=== PATIENT | female | born 1985 | race American Indian/Alaskan Native ===

== ENCOUNTER 2019-11-14 19:02 | Inpatient (IN) | payer MEDICAID ==
--- NOTE | 2019-11-14 22:59 | XRay Report ---
CHEST PA AND LATERAL VIEWS INDICATION: MAIN: COUGH AND CONGESTION; Fever, coughing, chest hurts when coughing, bodyaches, X 1 week. pt stat ed she went to [place] but they did nothing. COMPARISON: None FINDINGS: Support devices: None Heart: Normal Lungs/Pleura: Patchy parenchymal disease in the left base and, prominently, right mid and lower lung. No significant pleural fluid. IMPRESSION: 1. Findings suggest right-sided and possibly bilateral pneumonia. Signer Name: Kervin Guan MD Signed: 11/14/2019 10:55 PM Workstation Name: [id number]
[2019-11-14] MEDS ORDERED: SODIUM CHLORIDE 0.9% 1000 ML IV SOLN IV ONE (23:11)
[2019-11-14] MEDS ORDERED: SODIUM CHLORIDE 0.9% 500 ML 500 ML ONE (23:18)
[2019-11-14] MEDS ORDERED: PIPERACIL/TAZOBACTA 4.5/NS 100 4.5 GM/100 ML VIAL IV ONE (23:40)
[2019-11-14] MEDS ORDERED: VANCOMYCIN 2,000 MG in SODIUM CHLORIDE 0.9% 500 ML 500 ML IV ONE (23:45)
[2019-11-14] MEDS ORDERED: VANCOMYCIN PHARMACY TO DOSE IV SCH (23:45)
[2019-11-14 23:53] LABS: Basophils % (Auto) 0.3 % (0.0-1.8); Hematocrit 39.7 % (30.3-42.9); Hemoglobin 13.1 gm/dl (10.1-14.3); Lymphocytes # (Auto) 1.2 K/mm3 (1.2-5.4); Mean Corpuscular HGB Conc 33 % (30-34); Mean Corpuscular Volume 78 fl (79-97); Monocytes # (Auto) 0.6 K/mm3 (0.0-0.8); Monocytes % (Auto) 13.5 % (0.0-7.3); Platelet Count 206 K/mm3 (140-440); Red Blood Count 5.11 M/mm3 (3.65-5.03); Red Cell Distribution Width 16.5 % (13.2-15.2)
[2019-11-15 00:16] LABS: Alanine Aminotransferase 39 units/L (7-56); Albumin 3.8 g/dL (3.9-5); BUN/Creatinine Ratio 10; Blood Urea Nitrogen 10 mg/dL (7-17); Hemolysis Index 0
--- NOTE | 2019-11-15 00:35 | Emergency Department Report ---
- General Chief Complaint: Upper Respiratory Infection Stated Complaint: FLU SYM Time Seen by Provider: 11/14/19 22:53 Source: patient Mode of arrival: Ambulatory Limitations: No Limitations - History of Present Illness Initial Comments: Patient is a 34-year-old female presents emergency room with complaints of nausea, vomiting, diarrhea that began a week ago. She states that she has several episodes of each daily. She states that she then began to have productive cough, shortness of breath, chest tightness, chills. She denies any fever, sore throat, ear pain, abdominal pain, recent travel. She states that her only known sick contact was her approximately 2 weeks ago and he took [id number] medications and it self resolved. Patient states that she was seen at [place] 5 days ago and had a chest x-ray and flu swabs performed at that time which she states were all normal. She states that she was sent home with Zofran and Tylenol. She states that she has become acutely worse over the last couple of days. She denies any past medical history. She denies any allergies to medications. She states that her last menstrual cycle was 10/18/2019. - Related Data Allergies Allergy/AdvReac Type Severity Reaction Status Date / Time No Known Allergies Allergy Verified 11/14/19 23:36 ED Review of Systems ROS: Stated complaint: FLU SYM Other details as noted in HPI Comment: All other systems reviewed and negative ED Past Medical Hx - Past Medical History Previous Medical History?: Yes Additional medical history: OBESITY - Surgical History Past Surgical History?: No - Social History Smoking Status: Never Smoker Substance Use Type: None ED Physical Exam - General Limitations: No Limitations General appearance: alert, in no apparent distress - Head Head exam: Present: atraumatic, normocephalic - Eye Eye exam: Present: normal appearance - ENT ENT exam: Present: normal orophraynx, mucous membranes moist - Respiratory Respiratory exam: Present: decreased breath sounds (bilaterally). Absent: respiratory distress, wheezes, rales, rhonchi, stridor, chest wall tenderness, accessory muscle use, prolonged expiratory - Cardiovascular Cardiovascular Exam: Present: normal rhythm, tachycardia, normal heart sounds. Absent: systolic murmur, diastolic murmur, rubs, gallop - Neurological Exam Neurological exam: Present: alert, oriented X3 - Psychiatric Psychiatric exam: Present: normal affect, normal mood - Skin Skin exam: Present: warm, dry, intact ED Course Vital Signs 11/14/19 11/14/19 11/15/19 19:26 19:34 00:00 Temperature 98.5 F 98.4 F Pulse Rate 120 H 100 H Respiratory 20 18 18 Rate Blood Pressure 111/85 124/79 O2 Sat by Pulse 95 97 Oximetry 11/15/19 11/15/19 11/15/19 00:12 00:15 00:55 Temperature 99.1 F Pulse Rate 89 Respiratory 15 Rate Blood Pressure 139/75 O2 Sat by Pulse 100 100 Oximetry - Consultations Consultation #1: 11/15/19 00:[address] Paige, hospitalist for admission, will accept and resume care of patient, patient admitted to the hospital, I advised Dr. Paige that I filled out the CDC form for COVID 19 ED Medical Decision Making - Lab Data Result diagrams: 11/14/19 23:21 11/14/19 23:21 Lab Results 11/14/19 11/14/19 11/14/19 Range/Units 23:21 23:21 23:21 WBC 4.3 L (4.5-11.0) K/mm3 RBC 5.11 H (3.65-5.03) M/mm3 Hgb 13.1 (10.1-14.3) gm/dl Hct 39.7 (30.3-42.9) % MCV 78 L (79-97) fl MCH 26 L (28-32) pg MCHC 33 (30-34) % RDW 16.5 H (13.2-15.2) % Plt Count 206 (140-440) K/mm3 Lymph % (Auto) 27.0 (13.4-35.0) % [place] % (Auto) 13.5 H (0.0-7.3) % Eos % (Auto) 0.0 (0.0-4.3) % Baso % (Auto) 0.3 (0.0-1.8) % Lymph # 1.2 (1.2-5.4) K/mm3 [place] # 0.6 (0.0-0.8) K/mm3 Eos # 0.0 (0.0-0.4) K/mm3 Baso # 0.0 (0.0-0.1) K/mm3 Seg Neutrophils % 59.2 (40.0-70.0) % Seg Neutrophils # 2.6 (1.8-7.7) K/mm3 Sodium 137 (137-145) mmol/L Potassium 3.5 L (3.6-5.0) mmol/L Chloride 98.8 (98-107) mmol/L Carbon Dioxide 21 L (22-30) mmol/L Anion Gap 21 mmol/L BUN 10 (7-17) mg/dL Creatinine 1.0 (0.7-1.2) mg/dL Estimated GFR > 60 ml/min BUN/Creatinine Ratio 10 % Glucose 103 H (65-100) mg/dL Lactic Acid 1.20 (0.7-2.0) mmol/L Calcium 9.0 (8.4-10.2) mg/dL Total Bilirubin 0.40 (0.1-1.2) mg/dL AST 41 H (5-40) units/L ALT 39 (7-56) units/L Alkaline Phosphatase 69 (35-129) units/L Total Protein 7.6 (6.3-8.2) g/dL Albumin 3.8 L (3.9-5) g/dL Albumin/Globulin Ratio 1.0 % HCG, Qual (Negative) Influenza A (Rapid) (Negative) Influenza B (Rapid) (Negative) 11/15/19 11/15/19 Range/Units 00:43 02:12 WBC (4.5-11.0) K/mm3 RBC (3.65-5.03) M/mm3 Hgb (10.1-14.3) gm/dl Hct (30.3-42.9) % MCV (79-97) fl MCH (28-32) pg MCHC (30-34) % RDW (13.2-15.2) % Plt Count (140-440) K/mm3 Lymph % (Auto) (13.4-35.0) % [place] % (Auto) (0.0-7.3) % Eos % (Auto) (0.0-4.3) % Baso % (Auto) (0.0-1.8) % Lymph # (1.2-5.4) K/mm3 [place] # (0.0-0.8) K/mm3 Eos # (0.0-0.4) K/mm3 Baso # (0.0-0.1) K/mm3 Seg Neutrophils % (40.0-70.0) % Seg Neutrophils # (1.8-7.7) K/mm3 Sodium (137-145) mmol/L Potassium (3.6-5.0) mmol/L Chloride (98-107) mmol/L Carbon Dioxide (22-30) mmol/L Anion Gap mmol/L BUN (7-17) mg/dL Creatinine (0.7-1.2) mg/dL Estimated GFR ml/min BUN/Creatinine Ratio % Glucose (65-100) mg/dL Lactic Acid (0.7-2.0) mmol/L Calcium (8.4-10.2) mg/dL Total Bilirubin (0.1-1.2) mg/dL AST (5-40) units/L ALT (7-56) units/L Alkaline Phosphatase (35-129) units/L Total Protein (6.3-8.2) g/dL Albumin (3.9-5) g/dL Albumin/Globulin Ratio % HCG, Qual Negative (Negative) Influenza A (Rapid) Negative (Negative) Influenza B (Rapid) Negative (Negative) Vital Signs 11/14/19 11/14/19 11/15/19 19:26 19:34 00:00 Temperature 98.5 F 98.4 F Pulse Rate 120 H 100 H Respiratory 20 18 18 Rate Blood Pressure 111/85 124/79 O2 Sat by Pulse 95 97 Oximetry 11/15/19 11/15/19 11/15/19 00:12 00:15 00:55 Temperature 99.1 F Pulse Rate 89 Respiratory 15 Rate Blood Pressure 139/75 O2 Sat by Pulse 100 100 Oximetry - Radiology Data CHEST PA AND LATERAL VIEWS INDICATION: MAIN: COUGH AND CONGESTION; Fever, coughing, chest hurts when coughing, bodyaches, X 1 week. pt stated she went to [place] but they did nothing. COMPARISON: None FINDINGS: Support devices: None Heart: Normal Lungs/Pleura: Patchy parenchymal disease in the left base and, prominently, rig ht mid and lower lung. No significant pleural fluid. IMPRESSION: 1. Findings suggest right-sided and possibly bilateral pneumonia. Signer Name: Kervni Guan MD Signed: 11/14/2019 10:55 PM Workstation Name: [id number] Transcribed By: TM Dictated By: Kervin Guan MD Electronically Authenticated By: Kervin Guan MD Signed Date/Time: 11/14/192254 DD/ 51 TD/TT: - Medical Decision Making Patient is a 34-year-old female presents emergency room with complaints of nausea, vomiting, diarrhea that began a week ago. She states that she has several episodes of each daily. She states that she then began to have productive cough, shortness of breath, chest tightness, chills. She denies any fever, sore throat, ear pain, abdominal pain, recent travel. She states that her only known sick contact was her approximately 2 weeks ago and he took [id number] medications and it self resolved. Patient states that she was seen at [place] 5 days ago and had a chest x-ray and flu swabs performed at that time which she states were all normal. She states that she was sent home with Zofran and Tylenol. She states that she has become acutely worse over the last couple of days. She denies any past medical history. She denies any allergies to medications. She states that her last menstrual cycle was 10/18/2019. Initial vitals with tachycardia which improved upon repeat. Labs are stable. hCG is negative. Influenza is negative. CXR: 1. Findings suggest right-sided and possibly bilateral pneumonia. Discussed patient with Dr. Victoria, ER attending who recommended to fill out the CDC form online for potential COVID 19 testing and to admit patient to the hospitalist service. form filled out according to hospital guidelines. Patient given IV fluids based on ideal body weight, Zosyn, vancomycin. Spoke with Dr. Paige, hospitalist for admission, will accept and resume care of patient, patient admitted to the hospital, I advised Dr. Paige that I filled out the CDC form for COVID 19 - Differential Diagnosis URI, PNA, influenza, viral syndrome, bronchitis, COVID-19 Critical care attestation.: If time is entered above; I have spent that time in minutes in the direct care of this critically ill patient, excluding procedure time. ED Disposition Clinical Impression: Nausea vomiting and diarrhea, Productive cough, Shortness of breath, Chest tightness Bilateral pneumonia Qualifiers: Pneumonia type: due to unspecified organism Lung location: lower lobe of lung Qualified Code(s): J18.9 - Pneumonia, unspecified organism Disposition: OP ADMIT IP TO THIS HOSP Is pt being admited?: Yes Does the pt Need Aspirin: No Condition: Fair Instructions: Bacterial Pneumonia (ED) Referrals: PRIMARY CARE, [Primary Care Provider] - 3-5 Days Time of Disposition: 00:44 Print Language: JORDANIAN
[2019-11-15] MEDS ORDERED: ACETAMINOPHEN 325 MG TAB PO PRN (01:27)
[2019-11-15] MEDS ORDERED: ONDANSETRON 4 MG/2 ML INJ IV PRN (01:27)
[2019-11-15] MEDS ORDERED: oxyCODONE /ACETAMINOPHEN 5-325MG TAB PO PRN (01:27)
--- NOTE | 2019-11-15 01:36 | History and Physical Report ---
History of Present Illness History of present illness: 34-year-old woman with no medical problem comes emergency room with multiple complaints. Admits to nausea vomiting diarrhea x1 week, at least 5 episodes of diarrhea a day. Her symptoms have not improved so she came to the emergency room for further evaluation. Also complaining of cough productive of white phlegm, fever, chills, shortness of breath and chest tightness. She denies sick contacts. She has been using several [id number] medications without any improvement in her symptoms. Seen at [place] 5 days ago, tested for flu which was negative the patient will be admitted for pneumonia, status post vancomycin, Zosyn Review Of Systems: Constitutional: no weight loss Ears, eyes, nose, mouth and throat: no nasal congestion, no nasal discharge, no sinus pressure, blurry vision, diplopia Neck: No neck pain or rigidity. Cardiovascular: No palpitations, chest pain Respiratory:+ shortness of breath, cough Gastrointestinal: No hematochezia Genitourinary : no dysuria, frequency Musculoskeletal: no muscle ache , joint pain Integumentary: no rash, no pruritis Neurological: no parathesias, focal weakness Endocrine: no cold or heat intolerance, no polyuria or polydipsia Hematologic/Lymphatic: no easy bruising, no easy bleeding, no gland swelling Allergic/Immunologic: no urticaria, no angioedema. PAST MEDICAL HISTORY: None PAST SURGICAL HISTORY: None SOCIAL HISTORY: Denies alcohol, tobacco, drugs FAMILY HISTORY: Hypertension Medications and Allergies Allergies Allergy/AdvReac Type Severity Reaction Status Date / Time No Known Allergies Allergy Verified 11/14/19 23:36 Active Meds: Active Medications Acetaminophen (Tylenol) 650 mg PO Q4H PRN PRN Reason: Pain MILD(1-3)/Fever >100.5/PRIETO Enoxaparin Sodium (Enoxaparin) 30 mg SUB-Q QDAY BRANDON Vancomycin HCl 2,000 mg/ (Sodium Chloride) 540 mls @ 250 mls/hr IV ONCE ONE Stop: 11/15/19 01:54 Sodium Chloride (Nacl 0.9% 1000 Ml) 1,000 mls @ 75 mls/hr IV DIRECT BRANDON Ondansetron HCl (Zofran) 4 mg IV Q8H PRN PRN Reason: Nausea And Vomiting Oxycodone/Acetaminophen (Percocet 5/325) 1 tab PO Q6H PRN PRN Reason: Pain, Moderate (4-6) Sodium Chloride (Sodium Chloride Flush Syringe 10 Ml) 10 ml IV BID BRANDON Sodium Chloride (Sodium Chloride Flush Syringe 10 Ml) 10 ml IV PRN PRN PRN Reason: LINE FLUSH Exam - Physical Exam Narrative exam: Gen. appearance: Patient lying in bed, no apparent distress HEENT: Normocephalic, atraumatic, pupils equally round and reactive to light, extraocular movement intact, and no sclericterus,. No JVD or thyromegaly or nodule,neck supple, no carotid bruit ,mucous membranes moist, no exudate or erythema Heart: S1, S2, regular rate and rhythm Lungs: Crackles bilaterally, breathing comfortable Abdomen: Positive bowel sounds, nontender, nondistended, no organomegaly Extremity: no edema, cyanosis, clubbing Skin: No rash, nodules, warm, dry Neuro: speech is fluent, moves extremities, sensory intact - Constitutional Vitals: Temp Pulse Resp BP Pulse Ox 99.1 F 89 15 139/75 100 11/15/19 00:55 11/15/19 00:15 11/15/19 00:15 11/15/19 00:15 11/15/19 00:15 Results - Labs CBC & Chem 7: 11/15/19 04:16 11/15/19 04:16 Labs: Abnormal lab results 11/14/19 11/14/19 Range/Units 23:21 23:21 WBC 4.3 L (4.5-11.0) K/mm3 RBC 5.11 H (3.65-5.03) M/mm3 MCV 78 L (79-97) fl MCH 26 L (28-32) pg RDW 16.5 H (13.2-15.2) % [place] % (Auto) 13.5 H (0.0-7.3) % Potassium 3.5 L (3.6-5.0) mmol/L Carbon Dioxide 21 L (22-30) mmol/L Glucose 103 H (65-100) mg/dL AST 41 H (5-40) units/L Albumin 3.8 L (3.9-5) g/dL - Imaging and Cardiology Chest x-ray: report reviewed Assessment and Plan Assessment Community-acquired pneumonia Start IV Rocephin, azithromycin, follow cultures Consult ID, Department of Health notified Diarrhea, check stool studies, droplet precaution DVT prophylaxis
[2019-11-15 05:04] LABS: Basophils % (Auto) 0.4 % (0.0-1.8); Eosinophils % (Auto) 0.1 % (0.0-4.3); Hematocrit 36.8 % (30.3-42.9); Hemoglobin 11.9 gm/dl (10.1-14.3); Lymphocytes # (Auto) 1.3 K/mm3 (1.2-5.4); Mean Corpuscular HGB Conc 32 % (30-34); Mean Corpuscular Volume 79 fl (79-97); Monocytes # (Auto) 0.6 K/mm3 (0.0-0.8); Monocytes % (Auto) 15.6 % (0.0-7.3); Platelet Count 188 K/mm3 (140-440); Red Blood Count 4.68 M/mm3 (3.65-5.03); Red Cell Distribution Width 16.5 % (13.2-15.2)
[2019-11-15 05:26] LABS: BUN/Creatinine Ratio 10; Blood Urea Nitrogen 9 mg/dL (7-17); Calcium 7.9 mg/dL (8.4-10.2); Hemolysis Index 12
[2019-11-15] MEDS: SODIUM CHLORIDE 0.9% 1000 ML 1,000 ML IV SCH ×2 (06:55→20:35)
[2019-11-15] MEDS: ENOXAPARIN 40 MG/0.4 ML INJ SUB-Q SCH (09:06)
[2019-11-15] MEDS: AZITHROMYCIN 250 MG TAB PO SCH (09:07)
[2019-11-15] MEDS ORDERED: ENOXAPARIN 30 MG/0.3 ML INJ SUB-Q SCH (10:00)
[2019-11-15] MEDS: cefTRIAXone/NS 1 GM/50 ML 1 GM/50 ML BAG IV SCH (11:32)
--- NOTE | 2019-11-15 16:50 | Progress Note ---
Assessment and Plan - Patient Problems (1) Bilateral pneumonia Current Visit: Yes Status: Acute Qualifiers: Pneumonia type: due to unspecified organism Lung location: lower lobe of lung Qualified Code(s): J18.9 - Pneumonia, unspecified organism Plan to address problem: Patient with bilateral pneumonia has been placed on Rocephin and azithromycin. Blood cultures have been obtained. Patient on oxygen. Albuterol nebulizers. We will continue broad-spectrum antibiotics. O2 and supportive care. Droplet precautions have already been initiated. Follow-up culture data influenza data. (2) Nausea vomiting and diarrhea Current Visit: Yes Status: Acute Plan to address problem: Unknown etiology. Nausea vomiting has resolved. Patient has not had a stool as of this morning. (3) Productive cough Current Visit: Yes Status: Acute (4) Shortness of breath Current Visit: Yes Status: Acute Plan to address problem: It is secondary to bilateral pneumonia. Continue to treat underlying etiology with broad-spectrum antibiotics as were doing. Nebulizers. Not numerous amount of wheezing will most likely refrain from steroids. (5) Morbid obesity Current Visit: Yes Status: Acute History Interval history: Patient this a.m. mostly complains of shortness of breath. Just cannot get up phlegm. Patient states breathing is a little better. Otherwise hospital course unremarkable. Hospitalist Physical - Constitutional Vitals: Temp Pulse Resp BP Pulse Ox 97.9 F 79 18 127/86 95 11/15/19 11:38 11/15/19 11:36 11/15/19 11:36 11/15/19 11:36 11/15/19 11:36 General appearance: Present: no acute distress - EENT Eyes: Present: PERRL, EOM intact ENT: hearing intact, clear oral mucosa, dentition normal - Neck Neck: Present: supple, normal ROM - Respiratory Respiratory: bilateral: rhonchi, wheezing - Cardiovascular Rhythm: regular - Extremities Extremities: no ischemia, pulses intact, pulses symmetrical - Abdominal General gastrointestinal: soft, non-tender, non-distended, normal bowel sounds, other (Obese) - Psychiatric Psychiatric: appropriate mood/affect, intact judgment & insight, memory intact Results - Labs CBC & Chem 7: 11/15/19 04:16 11/15/19 04:16 Labs: Laboratory Last Values WBC 3.5 K/mm3 (4.5-11.0) L 11/15/19 04:16 RBC 4.68 M/mm3 (3.65-5.03) 11/15/19 04:16 Hgb 11.9 gm/dl (10.1-14.3) 11/15/19 04:16 Hct 36.8 % (30.3-42.9) 11/15/19 04:16 MCV 79 fl (79-97) 11/15/19 04:16 MCH 25 pg (28-32) L 11/15/19 04:16 MCHC 32 % (30-34) 11/15/19 04:16 RDW 16.5 % (13.2-15.2) H 11/15/19 04:16 Plt Count 188 K/mm3 (140-440) 11/15/19 04:16 Lymph % (Auto) 37.0 % (13.4-35.0) H 11/15/19 04:16 [place] % (Auto) 15.6 % (0.0-7.3) H 11/15/19 04:16 Eos % (Auto) 0.1 % (0.0-4.3) 11/15/19 04:16 Baso % (Auto) 0.4 % (0.0-1.8) 11/15/19 04:16 Lymph # 1.3 K/mm3 (1.2-5.4) 11/15/19 04:16 [place] # 0.6 K/mm3 (0.0-0.8) 11/15/19 04:16 Eos # 0.0 K/mm3 (0.0-0.4) 11/15/19 04:16 Baso # 0.0 K/mm3 (0.0-0.1) 11/15/19 04:16 Seg Neutrophils % 46.9 % (40.0-70.0) 11/15/19 04:16 Seg Neutrophils # 1.7 K/mm3 (1.8-7.7) L 11/15/19 04:16 Sodium 139 mmol/L (137-145) 11/15/19 04:16 Potassium 3.7 mmol/L (3.6-5.0) 11/15/19 04:16 Chloride 103.5 mmol/L (98-107) 11/15/19 04:16 Carbon Dioxide 21 mmol/L (22-30) L 11/15/19 04:16 Anion Gap 18 mmol/L 11/15/19 04:16 BUN 9 mg/dL (7-17) 11/15/19 04:16 Creatinine 0.9 mg/dL (0.7-1.2) 11/15/19 04:16 Estimated GFR > 60 ml/min 11/15/19 04:16 BUN/Creatinine Ratio 10 % 11/15/19 04:16 Glucose 97 mg/dL (65-100) 11/15/19 04:16 Lactic Acid 0.90 mmol/L (0.7-2.0) 11/15/19 04:16 Calcium 7.9 mg/dL (8.4-10.2) L 11/15/19 04:16 Total Bilirubin 0.40 mg/dL (0.1-1.2) 11/14/19 23:21 AST 41 units/L (5-40) H 11/14/19 23:21 ALT 39 units/L (7-56) 11/14/19 23:21 Alkaline Phosphatase 69 units/L (35-129) 11/14/19 23:21 Total Protein 7.6 g/dL (6.3-8.2) 11/14/19 23:21 Albumin 3.8 g/dL (3.9-5) L 11/14/19 23:21 Albumin/Globulin Ratio 1.0 % 11/14/19 23:21 HCG, Qual Negative (Negative) 11/15/19 00:43 Influenza A (Rapid) Negative (Negative) 11/15/19 02:12 Influenza B (Rapid) Negative (Negative) 11/15/19 02:12 Rodarte/IV: Voiding Method Toilet IV Catheter Type [Left Hand] Peripheral IV IV Catheter Type [Right Hand] INT / Saline Lock Active Medications - Current Medications Current Medications: Generic Name Dose Route Start Last Admin Trade Name Freq PRN Reason Stop Dose Admin Acetaminophen 650 mg 11/15/19 01:27 Tylenol PO Q4H PRN Pain MILD(1-3)/Fever >100.5/PRIETO Azithromycin 500 mg 11/15/19 10:00 11/15/19 09:07 Zithromax PO 500 mg QDAY BRANDON Administration Enoxaparin Sodium 40 mg 11/15/19 10:00 11/15/19 09:06 Enoxaparin SUB-Q 40 mg QDAY@1000 BRANDON Administration Sodium Chloride 1,000 mls @ 75 mls/hr 11/15/19 01:30 11/15/19 06:55 Nacl 0.9% 1000 Ml IV 75 mls/hr DIRECT BRANDON Administration Ceftriaxone Sodium 1 gm in 50 mls @ 100 mls/hr 11/15/19 10:00 11/15/19 11:32 Rocephin/Ns 1 Gm/50 Ml IV 100 mls/hr Q24HR BRANDON Administration Protocol Ondansetron HCl 4 mg 11/15/19 01:27 Zofran IV Q8H PRN Nausea And Vomiting Oxycodone/Acetaminophen 1 tab 11/15/19 01:27 Percocet 5/325 PO Q6H PRN Pain, Moderate (4-6) Sodium Chloride 10 ml 11/15/19 10:00 11/15/19 09:07 Sodium Chloride Flush Syringe 10 Ml IV 10 ml BID BRANDON Administration Sodium Chloride 10 ml 11/15/19 01:27 Sodium Chloride Flush Syringe 10 Ml IV PRN PRN LINE FLUSH
[2019-11-16] MEDS: cefTRIAXone/NS 1 GM/50 ML 1 GM/50 ML BAG IV SCH (09:57)
[2019-11-16] MEDS: AZITHROMYCIN 250 MG TAB PO SCH (09:57)
[2019-11-16] MEDS: ENOXAPARIN 40 MG/0.4 ML INJ SUB-Q SCH (09:57)
--- NOTE | 2019-11-16 11:02 | Consultation ---
History of Present Illness - Reason for Consult Consult date: 11/16/19 - History of Present Illness 34-year-old female no past medical history admitted to the hospital complaining of nausea, vomiting, diarrhea. The symptoms began approximately a week prior, in which she was seen at [place] and ruled out for influenza at that time. She notes an associated shortness of breath, fever, cough productive of white sputum. She denies any recent travel or contact with sick persons. Afebrile with a low white count of 4. Normal lymphocytes. Currently receiving ceftriaxone and azithromycin. Blood cultures no growth to date. Imaging personally reviewed: Chest x-ray: Probable bilateral pneumonia Review of Systems: Bold if positive, otherwise negative General: fevers, chills, rigors HEENT: visual disturbance, diplopia, eye pain Respiratory: cough, sputum, hemoptysis, shortness of breath Cardiovascular: chest pain, syncope Gastrointestinal: nausea, vomiting, diarrhea, abdominal pain Genitourinary: dysuria, hematuria, flank pain Musculoskeletal: neck pain, back pain, joint pain, edema Neurologic: headaches, seizures Hematologic: easy bruising or bleeding Endocrine: night sweats, acute weight loss Skin: rash, jaundice, redness Psychiatric: suicidal, homicidal ideation Past History Past Medical History: No medical history Past Surgical History: No surgical history Social history: no significant social history Family history: no significant family history Medications and Allergies Allergies Allergy/AdvReac Type Severity Reaction Status Date / Time No Known Allergies Allergy Verified 11/14/19 23:36 Home Medications Medication Instructions Recorded Confirmed Last Taken Type No Known Home Medications [No 11/15/19 11/15/19 Unknown History Reported Home Medications] Active Meds: Active Medications Acetaminophen (Tylenol) 650 mg PO Q4H PRN PRN Reason: Pain MILD(1-3)/Fever >100.5/PRIETO Azithromycin (Zithromax) 500 mg PO QDAY [facility] Last Admin: 11/16/19 09:57 Dose: 500 mg Documented by: Enoxaparin Sodium (Enoxaparin) 40 mg SUB-Q QDAY@1000 [facility] Last Admin: 11/16/19 09:57 Dose: 40 mg Documented by: Sodium Chloride (Nacl 0.9% 1000 Ml) 1,000 mls @ 75 mls/hr IV DIRECT [facility] Last Admin: 11/15/19 20:35 Dose: 75 mls/hr Documented by: Ceftriaxone Sodium (Rocephin/Ns 1 Gm/50 Ml) 1 gm in 50 mls @ 100 mls/hr IV Q24HR [facility]; Protocol Last Admin: 11/16/19 09:57 Dose: 100 mls/hr Documented by: Ondansetron HCl (Zofran) 4 mg IV Q8H PRN PRN Reason: Nausea And Vomiting Oxycodone/Acetaminophen (Percocet 5/325) 1 tab PO Q6H PRN PRN Reason: Pain, Moderate (4-6) Sodium Chloride (Sodium Chloride Flush Syringe 10 Ml) 10 ml IV BID [facility] Last Admin: 11/15/19 23:15 Dose: Not Given Documented by: Sodium Chloride (Sodium Chloride Flush Syringe 10 Ml) 10 ml IV PRN PRN PRN Reason: LINE FLUSH Physical Examination - Physical Exam Narrative exam: Physical Exam: Constitutional: Alert, cooperative. No acute distress, morbidly obese Head, Ears, Nose: Normocephalic, atraumatic. External ears, nose normal Eyes: Conjunctivae/corneas clear. No icterus. No ptosis. Neck: Supple, no meningeal signs Oral: dentition fair, no thrush Cardiovascular: S1, S2 normal. Respiratory: Good air entry, clear to auscultation bilaterally GI: Soft, non-tender; bowel sounds normal. No peritoneal signs. Musculoskeletal: No pedal edema, no cyanosis. Skin: No rash or abscess Hem/Lymphatic: No palpable cervical or supraclavicular nodes. No lymphangitis Psych: Mood ok. Affect normal Neurological: Awake, alert, oriented. No gross abnormality - Constitutional Vitals: Vital Signs Temp Pulse Resp BP Pulse Ox 98.7 F 80 18 123/79 98 11/16/19 04:56 11/16/19 04:56 11/16/19 08:00 11/16/19 04:56 11/16/19 04:56 Temperature -Last 24 Hours Temperature 98.7 F Temperature 98.5 F Temperature 97.9 F Results - Labs CBC & Chem 7: 11/15/19 04:16 11/15/19 04:16 Assessment and Plan Cultures: Blood culture 11/14/2019 no growth to date Influenza negative A/P: 34-year-old female no past medical history admitted with a constellation of symptoms including pneumonia. #COVID19 rule out: With her bilateral pneumonia, with associated diarrhea, nausea, vomiting all of which have been associated with the new coronavirus I will submit her for person under investigation with Department of Health form. Recommend contact and droplet precautions. Would continue ceftriaxone and azithromycin in the meantime. Recs: -Ordered procalcitonin for morning labs -Follow-up [facility] person under investigation status. -Contact and droplet precautions -Continue ceftriaxone and azithromycin for now. Thank you for the consult, will continue to follow. Dyia Peralta MD [facility] M: [phone] O: [phone] F: [phone]
--- NOTE | 2019-11-16 12:35 | Progress Note ---
Assessment and Plan - Patient Problems (1) Bilateral pneumonia Current Visit: Yes Status: Acute Qualifiers: Pneumonia type: due to unspecified organism Lung location: lower lobe of lung Qualified Code(s): J18.9 - Pneumonia, unspecified organism Plan to address problem: Patient with bilateral pneumonia currently on antibiotics fever curve has down trended on Rocephin and azithromycin. Patient also being ruled out for COVID-19 (2) Nausea vomiting and diarrhea Current Visit: Yes Status: Acute Plan to address problem: Still having diarrhea stool studies are pending for C. difficile colitis. (3) Productive cough Current Visit: Yes Status: Acute Plan to address problem: Productive cough has resolved. Patient does have mild wheezing consistent with asthma. Also probably underlying obesity hypoventilation syndrome. Continue nebulizers as were doing. (4) Shortness of breath Current Visit: Yes Status: Acute Plan to address problem: It is secondary to bilateral pneumonia. Continue to treat underlying etiology with broad-spectrum antibiotics as were doing. Nebulizers. Not numerous amount of wheezing will most likely refrain from steroids. (5) Morbid obesity Current Visit: Yes Status: Acute Plan to address problem: Suggest low calorie diet increase exercise after discharge. History Interval history: Patient feels better today. Still having diarrhea no fever no hypoxemia. Hospitalist Physical - Constitutional Vitals: Temp Pulse Resp BP Pulse Ox 98.7 F 80 18 123/79 98 11/16/19 04:56 11/16/19 04:56 11/16/19 08:00 11/16/19 04:56 11/16/19 04:56 General appearance: Present: no acute distress - EENT Eyes: Present: PERRL, EOM intact ENT: hearing intact, clear oral mucosa, dentition normal - Neck Neck: Present: supple, normal ROM - Respiratory Respiratory effort: normal Respiratory: bilateral: diminished, negative: other (Patient able to speak in full sentences on the phone laugh) - Cardiovascular Rhythm: regular - Extremities Extremities: no ischemia, pulses intact, No edema, normal temperature, normal color Peripheral Pulses: within normal limits - Abdominal General gastrointestinal: soft, non-tender, non-distended, normal bowel sounds - Integumentary Integumentary: Present: clear, warm, dry - Psychiatric Psychiatric: appropriate mood/affect, intact judgment & insight, memory intact - Neurologic Neurologic: CNII-XII intact, moves all extremities Results - Labs CBC & Chem 7: 11/15/19 04:16 11/15/19 04:16 Labs: Laboratory Last Values WBC 3.5 K/mm3 (4.5-11.0) L 11/15/19 04:16 RBC 4.68 M/mm3 (3.65-5.03) 11/15/19 04:16 Hgb 11.9 gm/dl (10.1-14.3) 11/15/19 04:16 Hct 36.8 % (30.3-42.9) 11/15/19 04:16 MCV 79 fl (79-97) 11/15/19 04:16 MCH 25 pg (28-32) L 11/15/19 04:16 MCHC 32 % (30-34) 11/15/19 04:16 RDW 16.5 % (13.2-15.2) H 11/15/19 04:16 Plt Count 188 K/mm3 (140-440) 11/15/19 04:16 Lymph % (Auto) 37.0 % (13.4-35.0) H 11/15/19 04:16 [place] % (Auto) 15.6 % (0.0-7.3) H 11/15/19 04:16 Eos % (Auto) 0.1 % (0.0-4.3) 11/15/19 04:16 Baso % (Auto) 0.4 % (0.0-1.8) 11/15/19 04:16 Lymph # 1.3 K/mm3 (1.2-5.4) 11/15/19 04:16 [place] # 0.6 K/mm3 (0.0-0.8) 11/15/19 04:16 Eos # 0.0 K/mm3 (0.0-0.4) 11/15/19 04:16 Baso # 0.0 K/mm3 (0.0-0.1) 11/15/19 04:16 Seg Neutrophils % 46.9 % (40.0-70.0) 11/15/19 04:16 Seg Neutrophils # 1.7 K/mm3 (1.8-7.7) L 11/15/19 04:16 Sodium 139 mmol/L (137-145) 11/15/19 04:16 Potassium 3.7 mmol/L (3.6-5.0) 11/15/19 04:16 Chloride 103.5 mmol/L (98-107) 11/15/19 04:16 Carbon Dioxide 21 mmol/L (22-30) L 11/15/19 04:16 Anion Gap 18 mmol/L 11/15/19 04:16 BUN 9 mg/dL (7-17) 11/15/19 04:16 Creatinine 0.9 mg/dL (0.7-1.2) 11/15/19 04:16 Estimated GFR > 60 ml/min 11/15/19 04:16 BUN/Creatinine Ratio 10 % 11/15/19 04:16 Glucose 97 mg/dL (65-100) 11/15/19 04:16 Lactic Acid 0.90 mmol/L (0.7-2.0) 11/15/19 04:16 Calcium 7.9 mg/dL (8.4-10.2) L 11/15/19 04:16 Total Bilirubin 0.40 mg/dL (0.1-1.2) 11/14/19 23:21 AST 41 units/L (5-40) H 11/14/19 23:21 ALT 39 units/L (7-56) 11/14/19 23:21 Alkaline Phosphatase 69 units/L (35-129) 11/14/19 23:21 Total Protein 7.6 g/dL (6.3-8.2) 11/14/19 23:21 Albumin 3.8 g/dL (3.9-5) L 11/14/19 23:21 Albumin/Globulin Ratio 1.0 % 11/14/19 23:21 HCG, Qual Negative (Negative) 11/15/19 00:43 Influenza A (Rapid) Negative (Negative) 11/15/19 02:12 Influenza B (Rapid) Negative (Negative) 11/15/19 02:12 Rodarte/IV: Voiding Method Toilet IV Catheter Type [Left Hand] Peripheral IV IV Catheter Type [Right Hand] INT / Saline Lock Active Medications - Current Medications Current Medications: Generic Name Dose Route Start Last Admin Trade Name Freq PRN Reason Stop Dose Admin Acetaminophen 650 mg 11/15/19 01:27 Tylenol PO Q4H PRN Pain MILD(1-3)/Fever >100.5/PRIETO Azithromycin 500 mg 11/15/19 10:00 11/16/19 09:57 Zithromax PO 500 mg QDAY BRANDON Administration Enoxaparin Sodium 40 mg 11/15/19 10:00 11/16/19 09:57 Enoxaparin SUB-Q 40 mg QDAY@1000 BRANDON Administration Sodium Chloride 1,000 mls @ 75 mls/hr 11/15/19 01:30 11/15/19 20:35 Nacl 0.9% 1000 Ml IV 75 mls/hr DIRECT BRANDON Administration Ceftriaxone Sodium 1 gm in 50 mls @ 100 mls/hr 11/15/19 10:00 11/16/19 09:57 Rocephin/Ns 1 Gm/50 Ml IV 100 mls/hr Q24HR BRANDON Administration Protocol Ondansetron HCl 4 mg 11/15/19 01:27 Zofran IV Q8H PRN Nausea And Vomiting Oxycodone/Acetaminophen 1 tab 11/15/19 01:27 Percocet 5/325 PO Q6H PRN Pain, Moderate (4-6) Sodium Chloride 10 ml 11/15/19 10:00 11/15/19 23:15 Sodium Chloride Flush Syringe 10 Ml IV Not Given BID BRANDON Sodium Chloride 10 ml 11/15/19 01:27 Sodium Chloride Flush Syringe 10 Ml IV PRN PRN LINE FLUSH
[2019-11-17] MEDS: cefTRIAXone/NS 1 GM/50 ML 1 GM/50 ML BAG IV SCH (10:25)
[2019-11-17] MEDS: SODIUM CHLORIDE 0.9% 1000 ML 1,000 ML IV SCH ×2 (10:25→19:43)
[2019-11-17] MEDS: ENOXAPARIN 40 MG/0.4 ML INJ SUB-Q SCH (10:26)
[2019-11-17] MEDS: AZITHROMYCIN 250 MG TAB PO SCH (10:26)
--- NOTE | 2019-11-17 15:26 | Progress Note ---
Assessment and Plan Cultures: Blood culture 11/14/2019 no growth to date Influenza negative A/P: 34-year-old female no past medical history admitted with a constellation of symptoms including pneumonia. #COVID19 rule out: With her bilateral pneumonia, with associated diarrhea, nausea, vomiting all of which have been associated with the new coronavirus I w ill submit her for person under investigation with Department of Health form. Recommend contact and droplet precautions. Would continue ceftriaxone and azithromycin in the meantime. Recs: -Procalcitonin normal, increased concern for viral etiology including COVID-19. -Follow-up [facility] person under investigation status, test results. -Contact and droplet precautions -Continue ceftriaxone and azithromycin for now. Thank you for the consult, will continue to follow. Diya Peralta MD [facility] ([facility]) M: [phone] O: [phone] F: [phone] Subjective Date of service: 11/17/19 Interval history: Ongoing shortness of breath, no fevers. No new complaints at this time. White count 3.5 Objective - Exam Narrative Exam: Physical Exam: Constitutional: Alert, cooperative. No acute distress, morbidly obese Neck: Supple, no meningeal signs Oral: dentition fair, no thrush Cardiovascular: S1, S2 normal. Respiratory: Good air entry, clear to auscultation bilaterally GI: Soft, non-tender; bowel sounds normal. No peritoneal signs. Musculoskeletal: No pedal edema, no cyanosis. Skin: No rash or abscess Hem/Lymphatic: No palpable cervical or supraclavicular nodes. No lymphangitis Psych: Mood ok. Affect normal Neurological: Awake, alert, oriented. No gross abnormality - Constitutional Vitals: Vital Signs Temp Pulse Resp BP Pulse Ox 98.6 F 72 18 132/91 99 11/17/19 10:58 11/17/19 10:58 11/17/19 10:58 11/17/19 10:58 11/17/19 10:58 Temperature -Last 24 Hours Temperature 98.6 F Temperature 98.0 F - Labs CBC & Chem 7: 11/15/19 04:16 11/15/19 04:16
--- NOTE | 2019-11-17 17:16 | Progress Note ---
Assessment and Plan Assessment and plan: - Patient Problems (1) Bilateral pneumonia Current Visit: Yes Status: Acute Qualifiers: Pneumonia type: due to unspecified organism Lung location: lower lobe of lung Qualified Code(s): J18.9 - Pneumonia, unspecified organism Plan to address problem: Patient with bilateral pneumonia currently on antibiotics fever curve has down trended on Rocephin and azithromycin. Patient also being ruled out for COVID-19 COVID19 rule out: With her bilateral pneumonia, with associated diarrhea, nausea, vomiting all of which have been associated with the new coronavirus I will submit her for person under investigation with Department of Health form. Recommend contact and droplet precautions. Would continue ceftriaxone and azithromycin in the meantime. Per ID -Procalcitonin normal, increased concern for viral etiology including COVID-19. -Follow-up [facility] person under investigation status, test results. -Contact and droplet precautions -Continue ceftriaxone and azithromycin for now. Patient advised of the recommendation (2) Nausea vomiting and diarrhea Current Visit: Yes Status: Acute Plan to address problem: Still having diarrhea stool studies are pending for C. difficile colitis. (3) Productive cough Current Visit: Yes Status: Acute Plan to address problem: Productive cough has resolved. Patient does have mild wheezing consistent with asthma. Also probably underlying obesity hypoventilation syndrome. Continue nebulizers as were doing. (4) Shortness of breath Current Visit: Yes Status: Acute Plan to address problem: It is secondary to bilateral pneumonia. Continue to treat underlying etiology with broad-spectrum antibiotics as were doing. Nebulizers. Not numerous amount of wheezing will most likely refrain from steroids. (5) Morbid obesity Current Visit: Yes Status: Acute Plan to address problem: Suggest low calorie diet increase exercise after discharge. DVT and GI prophylaxis Recs: Thank you for the consult, will continue to follow. Diya Peralta MD History Interval history: Patient seen and examined reports improvement in symptomology but not quite at baseline yet. No diarrhea reported today. Hospitalist Physical - Physical exam Narrative exam: General appearance: Present: no acute distress - EENT Eyes: Present: PERRL, EOM intact ENT: hearing intact, clear oral mucosa, dentition normal - Neck Neck: Present: supple, normal ROM - Respiratory Respiratory effort: normal Respiratory: bilateral: diminished, negative: other (Patient able to speak in full sentences on the phone laugh) - Cardiovascular Rhythm: regular - Extremities Extremities: no ischemia, pulses intact, No edema, normal temperature, normal color Peripheral Pulses: within normal limits - Abdominal General gastrointestinal: soft, non-tender, non-distended, normal bowel sounds - Integumentary Integumentary: Present: clear, warm, dry - Psychiatric Psychiatric: appropriate mood/affect, intact judgment & insight, memory intact - Neurologic Neurologic: CNII-XII intact, moves all extremities Results - Constitutional Vitals: Temp Pulse Resp BP Pulse Ox 98.6 F 72 18 132/91 99 11/17/19 10:58 11/17/19 10:58 11/17/19 10:58 11/17/19 10:58 11/17/19 10:58 General appearance: Present: no acute distress Results - Labs CBC & Chem 7: 11/15/19 04:16 11/15/19 04:16 Labs: Laboratory Last Values WBC 3.5 K/mm3 (4.5-11.0) L 11/15/19 04:16 RBC 4.68 M/mm3 (3.65-5.03) 11/15/19 04:16 Hgb 11.9 gm/dl (10.1-14.3) 11/15/19 04:16 Hct 36.8 % (30.3-42.9) 11/15/19 04:16 MCV 79 fl (79-97) 11/15/19 04:16 MCH 25 pg (28-32) L 11/15/19 04:16 MCHC 32 % (30-34) 11/15/19 04:16 RDW 16.5 % (13.2-15.2) H 11/15/19 04:16 Plt Count 188 K/mm3 (140-440) 11/15/19 04:16 Lymph % (Auto) 37.0 % (13.4-35.0) H 11/15/19 04:16 [place] % (Auto) 15.6 % (0.0-7.3) H 11/15/19 04:16 Eos % (Auto) 0.1 % (0.0-4.3) 11/15/19 04:16 Baso % (Auto) 0.4 % (0.0-1.8) 11/15/19 04:16 Lymph # 1.3 K/mm3 (1.2-5.4) 11/15/19 04:16 [place] # 0.6 K/mm3 (0.0-0.8) 11/15/19 04:16 Eos # 0.0 K/mm3 (0.0-0.4) 11/15/19 04:16 Baso # 0.0 K/mm3 (0.0-0.1) 11/15/19 04:16 Seg Neutrophils % 46.9 % (40.0-70.0) 11/15/19 04:16 Seg Neutrophils # 1.7 K/mm3 (1.8-7.7) L 11/15/19 04:16 Sodium 139 mmol/L (137-145) 11/15/19 04:16 Potassium 3.7 mmol/L (3.6-5.0) 11/15/19 04:16 Chloride 103.5 mmol/L (98-107) 11/15/19 04:16 Carbon Dioxide 21 mmol/L (22-30) L 11/15/19 04:16 Anion Gap 18 mmol/L 11/15/19 04:16 BUN 9 mg/dL (7-17) 11/15/19 04:16 Creatinine 0.9 mg/dL (0.7-1.2) 11/15/19 04:16 Estimated GFR > 60 ml/min 11/15/19 04:16 BUN/Creatinine Ratio 10 % 11/15/19 04:16 Glucose 97 mg/dL (65-100) 11/15/19 04:16 Lactic Acid 0.90 mmol/L (0.7-2.0) 11/15/19 04:16 Calcium 7.9 mg/dL (8.4-10.2) L 11/15/19 04:16 Total Bilirubin 0.40 mg/dL (0.1-1.2) 11/14/19 23:21 AST 41 units/L (5-40) H 11/14/19 23:21 ALT 39 units/L (7-56) 11/14/19 23:21 Alkaline Phosphatase 69 units/L (35-129) 11/14/19 23:21 Total Protein 7.6 g/dL (6.3-8.2) 11/14/19 23:21 Albumin 3.8 g/dL (3.9-5) L 11/14/19 23:21 Albumin/Globulin Ratio 1.0 % 11/14/19 23:21 Procalcitonin < 0.05 ng/mL (<0.15) 11/17/19 Unknown HCG, Qual Negative (Negative) 11/15/19 00:43 Influenza A (Rapid) Negative (Negative) 11/15/19 02:12 Influenza B (Rapid) Negative (Negative) 11/15/19 02:12 Rodarte/IV: Voiding Method Toilet IV Catheter Type [Left Hand] Peripheral IV IV Catheter Type [Right Hand] INT / Saline Lock Active Medications - Current Medications Current Medications: Generic Name Dose Route Start Last Admin Trade Name Freq PRN Reason Stop Dose Admin Acetaminophen 650 mg 11/15/19 01:27 11/17/19 10:26 Tylenol PO 650 mg Q4H PRN Administration Pain MILD(1-3)/Fever >100.5/PRIETO Azithromycin 500 mg 11/15/19 10:00 11/17/19 10:26 Zithromax PO 11/19/19 10:01 500 mg QDAY BRANDON Administration Enoxaparin Sodium 40 mg 11/15/19 10:00 11/17/19 10:26 Enoxaparin SUB-Q 40 mg QDAY@1000 BRANDON Administration Sodium Chloride 1,000 mls @ 75 mls/hr 11/15/19 01:30 11/17/19 10:25 Nacl 0.9% 1000 Ml IV 75 mls/hr DIRECT BRANDON Administration Ceftriaxone Sodium 1 gm in 50 mls @ 100 mls/hr 11/15/19 10:00 11/17/19 10:25 Rocephin/Ns 1 Gm/50 Ml IV 100 mls/hr Q24HR BRANDON Administration Protocol Ondansetron HCl 4 mg 11/15/19 01:27 Zofran IV Q8H PRN Nausea And Vomiting Oxycodone/Acetaminophen 1 tab 11/15/19 01:27 Percocet 5/325 PO Q6H PRN Pain, Moderate (4-6) Sodium Chloride 10 ml 11/15/19 10:00 11/17/19 10:26 Sodium Chloride Flush Syringe 10 Ml IV 10 ml BID BRANDON Administration Sodium Chloride 10 ml 11/15/19 01:27 Sodium Chloride Flush Syringe 10 Ml IV PRN PRN LINE FLUSH Nutrition/Malnutrition Assess - Dietary Evaluation Nutrition/Malnutrition Findings: Nutrition Notes Start: 11/17/19 1 3:42 Freq: Status: Active Protocol: Document 11/17/19 13:42 OH (Rec: 11/17/19 13:46 OH [id number]) Nutrition Notes Need for Assessment generated from: able seaman Initial or Follow up Assessment Other Pertinent Diagnosis PNEUMONIA Current Diet REGULAR Labs/Tests Reviewed Pertinent Medications Reviewed Height 5 ft 5 in Weight 113.398 kg Concrete Body Weight (kg) 56.81 BMI 41.5 Intake Prior to Admission Fair Weight Status Morbidly Obese Subjective/Other Information RN CONSULT. Pt. ruled out for covid-19. Percent of energy/protein needs met: 55/55% Burn Absent Trauma Absent GI Symptoms None Current % PO Fair (50-74%) Minimum of two criteria No physical signs of malnutrition #1 Nutrition Diagnosis Inadequate oral intake Etiology pneumonia As Evidenced by Signs and Symptoms poor appetite Is patient on ventilator? No Is Patient Ambulatory and/or Out of Bed Yes REE-([place] [employer] [facility]-ambulatory/OOB) [ 2398.318 [id number]] Kcal/Kg value to use for calculation 15 Approximate Energy Requirements Using 1701 kcal/Kg Calculation Used for Recommendations Kcal/kg Additional Notes FLUID: 1 mL/kcal PRO: .8-1.0 G/KG/IBW Nutrition Intervention Change Diet Order: cont regular diet Goal #1 Monitor po intake Follow-Up By: 11/21/19 Additional Comments f/u po intake
[2019-11-18] MEDS: AZITHROMYCIN 250 MG TAB PO SCH (09:53)
[2019-11-18] MEDS: ENOXAPARIN 40 MG/0.4 ML INJ SUB-Q SCH (09:53)
[2019-11-18] MEDS: SODIUM CHLORIDE 0.9% 1000 ML 1,000 ML IV SCH (09:53)
[2019-11-18] MEDS: cefTRIAXone/NS 1 GM/50 ML 1 GM/50 ML BAG IV SCH (09:58)
[2019-11-18 12:48] VITALS: BP 144/108
--- NOTE | 2019-11-18 13:08 | Progress Note ---
Assessment and Plan Cultures: Blood culture 11/14/2019 no growth to date Influenza negative A/P: 34-year-old female no past medical history admitted with a constellation of symptoms including pneumonia. #COVID19 rule out: With her bilateral pneumonia, with associated diarrhea, nausea, vomiting all of which have been associated with the new coronavirus I w ill submit her for person under investigation with Department of Health form. Recommend contact and droplet precautions. Would continue ceftriaxone and azithromycin in the meantime. Recs: -Procalcitonin normal, increased concern for viral etiology including COVID-19. -Follow-up [facility] person under investigation status, test results. -Contact and droplet precautions -Continue ceftriaxone and azithromycin for now. If discharging okay to send home with cefdinir 30 mg every 12 hours to complete 5 total days from start of ceftriaxone. - Patient may be discharged when medically stable if testing swabs have been obtained. Upon discharge patient should self-quarantine at home until COVID testing returns. If negative, self-quarantine may end. If positive patient should self-quarantine for 14 days from symptom beginning. Public health and infection prevention will follow up with patients to notify them of their test results. Patients should return to hospital regardless if they have worsening fevers or respiratory status. Thank you for the consult, will continue to follow. Diya Peralta MD [facility] ([facility]) M: [phone] O: [phone] F: [phone] Subjective Date of service: 11/18/19 Interval history: Afebrile, no new complaints. Procol is normal. Objective - Exam Narrative Exam: Physical Exam: Constitutional: Alert, cooperative. No acute distress, morbidly obese Neck: Supple, no meningeal signs Oral: dentition fair, no thrush Cardiovascular: S1, S2 normal. Respiratory: Mild wheeze GI: Soft, non-tender; bowel sounds normal. No peritoneal signs. Musculoskeletal: No pedal edema, no cyanosis. Skin: No rash or abscess Hem/Lymphatic: No palpable cervical or supraclavicular nodes. No lymphangitis Psych: Mood ok. Affect normal Neurological: Awake, alert, oriented. No gross abnormality - Constitutional Vitals: Vital Signs Temp Pulse Resp BP Pulse Ox 97.6 F 77 20 144/108 96 11/18/19 12:35 11/18/19 12:35 11/18/19 12:35 11/18/19 12:35 11/18/19 06:33 Temperature -Last 24 Hours Temperature 97.6 F Temperature 97.7 F Temperature 98 F Temperature 97.8 F Temperature 97.6 F - Labs CBC & Chem 7: 11/15/19 04:16 11/15/19 04:16
--- NOTE | 2019-11-18 14:44 | Discharge Summary ---
Providers - Providers Date of Admission: 11/15/19 05:37 Attending physician: VADIM CAGLE MD 11/15/19 01:27 Consult to Physician [CONS] Routine Comment: Consulting Provider: KING WILSON Physician Instructions: Reason For Exam: pna Hospitalization Condition: Stable Hospital course: A/P: 34-year-old female no past medical history admitted with a constellation of symptoms including pneumonia. #COVID19 rule out: With her bilateral pneumonia, with associated diarrhea, nausea, vomiting all of which have been associated with the new coronavirus I will submit her for person under investigation with Department of Health form. Recommend contact and droplet precautions. Would continue ceftriaxone and azithromycin in the meantime. Recs: -Procalcitonin normal, increased concern for viral etiology including COVID-19. -Follow-up [facility] person under investigation status, test results. -Contact and droplet precautions -Continue ceftriaxone and azithromycin for now. If discharging okay to send home with cefdinir 30 mg every 12 hours to complete 5 total days from start of ceftriaxone. - Patient may be discharged when medically stable if testing swabs have been obtained. Upon discharge Disposition: [id number] TO HOME OR SELFCARE Exam - Constitutional Vitals: Temp Pulse Resp BP Pulse Ox 97.6 F 77 20 144/108 96 11/18/19 12:35 11/18/19 12:35 11/18/19 12:35 11/18/19 12:35 11/18/19 06:33 Plan Activity: advance as tolerated, fall precautions, other (patient should self- quarantine at home until COVID testing returns. If negative, self-quarantine may end. If positive patient should self-quarantine for 14 days from symptom beginning. Public health and infection prevention will follow up with patients to notify them of their test results. Patients should return to hospital regardless if they have worsening fevers or respiratory status.) Diet: low fat Special Instructions: record daily weights, record daily BP diary Additional Instructions: patient should self-quarantine at home until COVID testing returns. If negative, self-quarantine may end. If positive patient should self-quarantine for 14 days from symptom beginning. Public health and infection prevention will follow up with patients to notify them of their test results. Patients should return to hospital regardless if they have worsening fevers or respiratory status. Follow up with: REJI RICHARDS MD [Staff Physician] - 14 Days PRIMARY CARE, [Referring] - 3-5 Days LEXIE ZEPEDA MD [Staff Physician] - 14 Days Prescriptions: Cefdinir 300 mg PO BID #4 capsule Albuterol INH(or & Nicu Only) [ProAir HFA Inhaler] 2 puff IH QID PRN #8.5 gram PRN Reason: Shortness Of Breath
== END 2019-11-18 16:30 | disposition home or self-care (01) | DRG 194 ==
LOC: ED 19:02 → 3A 11-15 05:37
PROVIDERS: ADMIT Internal Medicine; ATTEND Internal Medicine
DX: J18.9 Pneumonia, unspecified organism (principal); Z68.41 Body mass index [BMI] 40.0-44.9, adult; R11.2 Nausea with vomiting, unspecified; E66.01 Morbid (severe) obesity due to excess calories; R19.7 Diarrhea, unspecified; Z71.3 Dietary counseling and surveillance; Z82.49 Family history of ischemic heart disease and other diseases of the circulatory system
CPT/HCPCS: 36415; 71046; 80048; 80053; 82140; 84145; 84703; 85007; 85025; 87040; 87045; 87400; 96365; G0378; J0696; J1650; J2543; J3370; J7030; J7040

== ENCOUNTER 2021-03-13 23:07 | Emergency (ER) | payer MEDICAID ==
[2021-03-13 23:50] VITALS: BP 162/99
== END 2021-03-14 01:00 | disposition left against medical advice (07) ==
LOC: ED 23:07
DX: L02.412 Cutaneous abscess of left axilla (principal)